=== PATIENT | male | born 1945 | race Caucasian/White ===

== ENCOUNTER → 2025-02-04 08:06 | Outpatient (REF) | payer MEDICARE, BC, SELFPAY ==
[2025-02-04 11:10] LABS: Urine Albumin Negative (Neg - Trace); Urine Bilirubin Negative (Negative); Urine Character Clear (Clear); Urine Color Yellow; Urine Glucose 4+ (Negative); Urine Ketone Negative (Negative); Urine Leukocyte Negative (Negative); Urine Nitrite Negative (Negative); Urine Occult Blood Negative (Negative); Urine Urobilinogen Negative (Neg - 1+); Urine pH 6.5 (5.0-9.0)
== END ==
LOC: HWLAB 08:06
PROVIDERS: ATTENDING PHYSICIAN Physician Assistant Medical
DX: R35.0 Frequency of micturition (principal)
CPT/HCPCS: 81003; 87086